=== PATIENT | female | born 1970 | race Caucasian/White ===

== ENCOUNTER → 2023-01-07 | Outpatient (CLI) | payer OTHER ==
[2023-01-07 13:49] VITALS: BP 118/81; PULSE 68; RESP 18; TEMP 97.7
--- NOTE | 2023-01-07 14:32 | P.PAINPG ---
PQRS Measure Charge Sheet Comment: HISTORY OF PRESENT ILLNESS: 52 yr old female as a referral from Dr Shook presents today w severe and chronic neck pain secondary to occipital neuralgia and cervicogenic STEVENSON for evaluation. Pt states pain level is provoked at 8 /10 in intensity, constant, localized in the upper cervical spine, stabbing in character w shooting pain towards the top of head. Pain is provoked by hyperextension. Pain is alleviated by medications ([place], Topamax, Cymbalta), repositioning and rest. PMH: OA, HTN, MDD, Seasonal Allergies PSH: Denies SH: Negative x3 FH: Non contributory All: See list Meds: See list REVIEW OF ORGAN SYSTEMS: CONSTITUTIONAL: No fevers or chills. No recent weight loss. NEUROLOGICAL: + numbness and tingling along the distal extremities. No seizure disorders or headaches. MUSCULOSKELETAL: + pain PSYCHIATRIC: Denies current depression or suicidal thoughts. Physical Examinations : Constitutional : Cooperative , not in acute distress . Neurologic : Cranial nerve II to XII intact. No focal neurological deficits. Psychiatric : alert & oriented x 3. Matching mood & appropriate affect. Judgment & insight intact. Musculoskeletal : Cervical Spine +BL RICH TTP Motor strength in the deltoid and biceps: Normal right side. Normal Left side Motor strength biceps and the wrist extensors: Normal right side . Normal left side Motor strength in the triceps muscle: Normal right side. Normal left side Deep tendon reflexes: Normal at the biceps. Normal at Brachioradialis. Normal at triceps Vertebral body tenderness to deep palpation over Cervical facet loading test: positive bilaterally Spurling test: positive bilaterally Neck distraction test: positive bilaterally Du sign: positive bilaterally Lumbar spine Motor strength lower extremities ,thigh and legs 5/5 Right side , 5/5 Left side Deep tendon reflexes : Normal Knee Jerk. Normal Ankle Jerk Vertebral body tenderness over Benitez Test positive Lumbar facet Loading Test: positive Right / positive Left Range of motion of the lumbar spine Flexion 30 degrees, extension 10 degrees Straight Leg Raise test: Left/ Right positive at degree Paige test: positive right / positive left. Severe tenderness over the Sacroiliac joint on the Right / Left sides Gaenslen test: positive bilaterally Seated flexion test: positive bilaterally. Sacral spine : Severe tenderness over the Sacroiliac joint: right side / left side Range of motion: Flexion of the lumbar spine <60 degrees Range of motion: Extension of the lumbar spine <20 degrees Gaenslen's Test positive [place]'s Test positive Paige test: positive right side / left side Thigh Thrust Test Sacral Thrust Test Imaging: MRI noncontrast of the cervical spine from 12/25/22 reviewed Assessment/ Plan : Cervicogenic STEVENSON and Occipital Neuralgia Recommendation of BL RICH injections. May need a series for optimal pain relief. Risks, benefits of procedure discussed and pt verbalized understanding. Protocol for discontinuation/ continuation of medications osmin procedure discussed. All questions answered. I have spent greater than 30 minutes on patient care today. Dr Delgado was available by phone for the evaluation of this patient. The time was used to review the medical records including relevant urine studies and Prescription history (MAPs), review of the available imaging, evaluation and examination of the patient, coordination of care with the medical staff and if applicable referring physicians, as well as creation of the medical record Controlled Substance Measures - Controlled Substance Measures Is patient prescribed a controlled substance at discharge?: No
== END ==
LOC: PNWHC3 12:09
PROVIDERS: ATTEND Specialist
DX: M54.81 Occipital neuralgia (principal); G44.89 Other headache syndrome; M19.90 Unspecified osteoarthritis, unspecified site; I10 Essential (primary) hypertension; F32.9 Major depressive disorder, single episode, unspecified; J30.2 Other seasonal allergic rhinitis; G89.29 Other chronic pain; Z88.0 Allergy status to penicillin; Z91.018 Allergy to other foods; Z88.1 Allergy status to other antibiotic agents; Z79.899 Other long term (current) drug therapy
CPT/HCPCS: 99211

== ENCOUNTER 2023-01-24 11:52 | Day surgery (SDC) | payer OTHER ==
[~2023-01-24 11:52] MED LIST: LACTATED RINGERS 1,000 ML IV SCH
[2023-01-24] MEDS ORDERED: methylPREDNISolone ACETATE 80 MG/ML 1 ML VIAL ONE (13:01)
[2023-01-24] MEDS ORDERED: ROPIVACAINE 5 MG/ML 20 ML AMPULE ONE (13:01)
[2023-01-24 13:04] VITALS: TEMP 98.2
--- NOTE | 2023-01-24 13:08 | P.PCN ---
Date of Procedure: 01/24/23 Procedure(s) Performed: Preoperative diagnoses= 1- Greater occipital neuralgia. 2-cervicogenic headache Postoperative diagnoses= 1-greater occipital neuralgia. 2-cervicogenic headache Procedure= Bilateral Greater occipital nerve block Anesthesia=none . Estimated blood loss=minimal. Procedure indication= the patient had a history of severe chronic neck pain ,and headache, diagnosed with occipital neuralgia exam was positive for severe tenderness over the occipital nerve bilaterally, she will be a good candidate occipital nerve block, patient failed conservative management Procedure description= the patient was seen and identified in the preoperative holding area, risks and benefits and alternative of the procedure and possible complications discussed with the patient, and he agreed with the preceding, patient signed the consent, and vital signs were monitored and were stable throughout the procedure, patient was placed in the sitting position or table and the neck area was prepped and draped with a sterile fashion, vital signs were closely monitored during the procedure, 25-gauge needle advanced 1 inch lateral to the occipital protuberance on the right side, at the location of the right occipital nerve , then after negative aspiration for heme and CSF and there was no paresthesia during the injection, 6 ml of Robivacaine 0.5% and 40 mg of Depo-Medrol injected after negative aspiration, the needle removed, and the entire same procedure was repeated for the left Greater occipital nerve. Patient tolerated the procedure well without any complication, The patient returned to supine position after the back was cleaned and a Band- Aid applied, the patient transported to recovery room in stable condition and he was monitored for 30 minutes before he was discharged home and then patient was reexamined before going home and patient was discharged in stable condition and patient will follow up with the pain clinic in a few weeks.
[2023-01-24 13:14] VITALS: BP 131/91; PULSE 83; RESP 18
== END 2023-01-24 13:30 | disposition home or self-care (01) ==
LOC: ORPAIN 11:52
PROVIDERS: ATTEND Specialist
DX: M54.81 Occipital neuralgia (principal); G44.86 Cervicogenic headache; Z88.8 Allergy status to other drugs, medicaments and biological substances
CPT/HCPCS: 64405; J1040; J2795

== ENCOUNTER → 2023-03-07 | Outpatient (CLI) | payer OTHER ==
[2023-03-07 11:19] VITALS: BP 134/85; PULSE 104; RESP 15; TEMP 98.2
--- NOTE | 2023-03-07 13:12 | P.PAINPG ---
PQRS Measure Charge Sheet Comment: HISTORY OF PRESENT ILLNESS: 52 yr old female presents today w severe and chronic neck pain secondary to occipital neuralgia and cervicogenic STEVENSON for evaluation s/p BL RICH injection x1. Pt states she experienced 25 % pain relief x 1 wk s/p procedure. Pt states pain level is provoked at 8 /10 in intensity, constant, localized in the upper cervical spine, sharp in character w shooting pain towards the top of head. Pain is provoked by hyperextension. Pain is alleviated by physician guided home exercises and stretches 5 times weekly x 3 mo, medications, repositioning and rest. Oswestry axial pain score of 29. Interventional procedures include BL RICH x1 Medications include [place], Topamax, Cymbalta, Imitrex REVIEW OF ORGAN SYSTEMS: CONSTITUTIONAL: No fevers or chills. No recent weight loss. NEUROLOGICAL: + numbness and tingling along the distal extremities. No seizure disorders or headaches. MUSCULOSKELETAL: + pain PSYCHIATRIC: Denies current depression or suicidal thoughts. Physical Examinations : Constitutional : Cooperative , not in acute distress . Neurologic : Cranial nerve II to XII intact. No focal neurological deficits. Psychiatric : alert & oriented x 3. Matching mood & appropriate affect. Judgment & insight intact. Musculoskeletal : Cervical Spine Motor strength in the deltoid and biceps: Normal right side. Normal Left side Motor strength biceps and the wrist extensors: Normal right side . Normal left side Motor strength in the triceps muscle: Normal right side. Normal left side Deep tendon reflexes: Normal at the biceps. Normal at Brachioradialis. Normal at triceps Vertebral body tenderness to deep palpation over Cervical facet loading test: positive bilaterally over C2-C3, C3-C4 Spurling test: positive bilaterally Neck distraction test: positive bilaterally Du sign: positive bilaterally Lumbar spine Motor strength lower extremities ,thigh and legs 5/5 Right side , 5/5 Left side Deep tendon reflexes : Normal Knee Jerk. Normal Ankle Jerk Vertebral body tenderness over Benitez Test positive Lumbar facet Loading Test: positive Right / positive Left Range of motion of the lumbar spine Flexion 30 degrees, extension 10 degrees Straight Leg Raise test: Left/ Right positive at degree Paige test: positive right / positive left. Severe tenderness over the Sacroiliac joint on the Right / Left sides Gaenslen test: positive bilaterally Seated flexion test: positive bilaterally. Sacral spine : Severe tenderness over the Sacroiliac joint: right side / left side Range of motion: Flexion of the lumbar spine <60 degrees Range of motion: Extension of the lumbar spine <20 degrees Gaenslen's Test positive [place]'s Test positive Paige test: positive right side / left side Thigh Thrust Test Sacral Thrust Test Imaging: MRI noncontrast of the cervical spine from 12/25/22 reviewed Assessment/ Plan : Cervicogenic [place] and Occipital Neuralgia Recommendation of BL facet block of the medial branches C2-C3, C3-C4 #1. May need a series of injections, up until RFA, for optimal pain relief. Risks, benefits of procedure discussed and pt verbalized understanding. Protocol for discontinuation/ continuation of medications osmin procedure discussed. All questions answered. I have spent greater than 30 minutes on patient care today. Dr Delgdao was available by phone for the evaluation of this patient. The time was used to review the medical records including relevant urine studies and Prescription history (MAPs), review of the available imaging, evaluation and examination of the patient, coordination of care with the medical staff and if applicable referring physicians, as well as creation of the medical record PQRS Narrative: Hx Alcohol Use (MH) Yes: OCCASIONAL Home Medications: Ambulatory Orders ALPRAZolam [Xanax] 0.5 mg PO DAILY PRN 01/07/23 DULoxetine HCL [Cymbalta] 60 mg PO BID 01/07/23 Furosemide [Lasix] 40 mg PO DAILY 01/07/23 HYDROcodone/APAP 10-325MG [[place] 10-325] 1 tab PO Q4HR PRN 01/07/23 SUMAtriptan succinate [Imitrex] 100 mg PO DIRECTED PRN 01/07/23 Zolpidem [Ambien] 10 mg PO HS PRN 01/07/23 captopriL [Captopril] 100 mg PO DAILY 01/07/23 Cyclobenzaprine [Flexeril] 10 mg PO BID PRN 01/21/23 Omeprazole 40 mg PO DAILY 01/21/23 Topiramate 100 mg PO BID 01/21/23 Controlled Substance Measures - Controlled Substance Measures Is patient prescribed a controlled substance at discharge?: No
== END ==
LOC: PNWHC3 10:48
PROVIDERS: ATTEND Specialist
DX: G44.86 Cervicogenic headache (principal); M54.81 Occipital neuralgia; Z88.1 Allergy status to other antibiotic agents; Z88.0 Allergy status to penicillin; Z88.8 Allergy status to other drugs, medicaments and biological substances
CPT/HCPCS: 99211

== ENCOUNTER → 2023-03-29 | Day surgery (SDC) | payer OTHER ==
[~2023-03-29] MED LIST changes: +IV FLUID CONTINUATION 1,000 ML IV ONE; +MIDAZOLAM 2 MG/2 ML VIAL ONE; +ROPIVACAINE 5MG/ML 20ML VIAL ONE; +fentaNYL (PF) 50 MCG/ML 2 ML AMP ONE; +methylPREDNISolone ACETATE 40 MG/ML 1 ML VIAL ONE
[2023-03-29 09:28] VITALS: TEMP 97.6
--- NOTE | 2023-03-29 10:08 | P.PCN ---
Date of Procedure: 03/29/23 Procedure(s) Performed: PREOPERATIVE DIAGNOSIS: 1-Cervical Spondylosis with Facet Arthropathy.without myelopathy. 2-cervicogenic headache. 3-occipital neuralgia POSTOPERATIVE DIAGNOSIS:1-cervical spondylosis with facet arthropathy without myelopathy. 2-cervicogenic headache. 3-occipital neuralgia PROCEDURES: Diagnostic bilateral C2 ,C3, C4 medial branch blocks, with fluoroscopic guidance (fluoroscopy images available in radiology department ) ( to target the facet joint at bilateral C2-3 ,C3-4 ) # 1 St ANESTHESIA: Monitored anesthesia care as per anesthesia department . EBL: Minimal PROCEDURE INDICATION: The patient with neck pain secondary to cervical arthropathy unresponsive to more conservative treatments. PROCEDURE DESCRIPTION / TECHNIQUE: The patient was seen and identified in the pr eoperative area. Risks, benefits, complications, and alternatives were discussed with the patient, the patient agreed to proceed with the procedure and signed the consent. IV was started. Vital signs remained stable throughout the procedure. Patient was taken to the OR and time out was completed. The patient was placed in the prone position on the procedure table. A pillow was placed under the pa tients chest to increase the cervical interlaminar space. The cervical area was prepped and draped in the usual sterile fashion. Critical pause was taken. Vital signs were closely monitored during the procedure. Conscious sedation was used during the procedure to decrease patients anxiety. Using cross-table lateral fluoroscopy, the centroid of the trapezoid of right C2 ,C3, C4 was identified, marked, and localized with 1% lidocaine 1 ml at each level for skin and Sub Q infiltrations . Subsequently, a 22 G 3 spinal needle was advanced guided by fluoroscopy to the centroid of the trapezoid of Right C2 ,C3, C4 . [place] tip position was confirmed at the centroid of the trapezoids of Right C2 ,C3 , C4 with anteroposterior fluoroscopy. Subsequently, 1.5 ml of preservative-free Ropivacaine 0.5% mixed with Depo- Medrol 20 mg and half ml of the mixture was injected after negative aspiration for blood and CSF. [place] was then removed intact the same procedure was repea von at the left C2 , C3 , C4 levels. COMPLICATIONS: No acute complications. DISPOSITION / PLANS: The patient was placed in a supine position and transferred to the recovery area in a stable condition for observation and was discharged from the recovery room after meeting discharge criteria. Home discharge instructions given to the patient by the staff. The patient was reexamined prior to discharge. The patient will schedule a follow up in the clinic in 2-4 weeks.
--- NOTE | 2023-03-29 10:22 | FL ---
Fluoroscopy History: PAIN 13 SEC FL TIME. .12537 DAP. -AB/CE
[2023-03-29 15:26] VITALS: BP 121/73; PULSE 71; RESP 16
== END ==
LOC: ORPAIN 09:00
PROVIDERS: ATTEND Specialist
DX: M47.812 Spondylosis without myelopathy or radiculopathy, cervical region (principal); G44.86 Cervicogenic headache; M54.81 Occipital neuralgia; I10 Essential (primary) hypertension; G43.909 Migraine, unspecified, not intractable, without status migrainosus; K21.9 Gastro-esophageal reflux disease without esophagitis; Z88.1 Allergy status to other antibiotic agents; Z88.0 Allergy status to penicillin; Z79.899 Other long term (current) drug therapy; Z79.891 Long term (current) use of opiate analgesic
CPT/HCPCS: 64490; 64491 ×2; J2250; J1030; J3010; J2795

== ENCOUNTER → 2023-04-22 | Outpatient (CLI) | payer OTHER ==
[2023-04-22 12:20] VITALS: BP 138/84; PULSE 75; RESP 15; TEMP 98.2
--- NOTE | 2023-04-22 14:39 | P.PAINPG ---
PQRS Measure Charge Sheet Comment: HISTORY OF PRESENT ILLNESS: 52 yr old female presents today w severe and chronic neck pain secondary to occipital neuralgia and cervicogenic STEVENSON for evaluation s/p C2-C3, C3-C4 #1. Pt states she experienced 80 % pain relief x 3 days s/p procedure. Pt states pain level is provoked at 8 /10 in intensity, constant, localized in the upper cervical spine, sharp in character w shooting pain towards the top of head. Pain is provoked by hyperextension. Pain is alleviated by physician guided home exercises and stretches 5 times weekly x 3 mo, medications, repositioning and rest. Oswestry axial pain score of 29. Interventional procedures include BL RICH x1, BL MBB C2-C4 x1 Medications include [place], Topamax, Cymbalta, Imitrex REVIEW OF ORGAN SYSTEMS: CONSTITUTIONAL: No fevers or chills. No recent weight loss. NEUROLOGICAL: + numbness and tingling along the distal extremities. No seizure disorders or headaches. MUSCULOSKELETAL: + pain PSYCHIATRIC: Denies current depression or suicidal thoughts. Physical Examinations : Constitutional : Cooperative , not in acute distress . Neurologic : Cranial nerve II to XII intact. No focal neurological deficits. Psychiatric : alert & oriented x 3. Matching mood & appropriate affect. Judgment & insight intact. Musculoskeletal : Cervical Spine Motor strength in the deltoid and biceps: Normal right side. Normal Left side Motor strength biceps and the wrist extensors: Normal right side . Normal left side Motor strength in the triceps muscle: Normal right side. Normal left side Deep tendon reflexes: Normal at the biceps. Normal at Brachioradialis. Normal at triceps Vertebral body tenderness to deep palpation over Cervical facet loading test: positive bilaterally over C2-C3, C3-C4 Spurling test: positive bilaterally Neck distraction test: positive bilaterally Du sign: positive bilaterally Lumbar spine Motor strength lower extremities ,thigh and legs 5/5 Right side , 5/5 Left side Deep tendon reflexes : Normal Knee Jerk. Normal Ankle Jerk Vertebral body tenderness over Benitez Test positive Lumbar facet Loading Test: positive R ight / positive Left Range of motion of the lumbar spine Flexion 30 degrees, extension 10 degrees Straight Leg Raise test: Left/ Right positive at degree Paige test: positive right / positive left. Severe tenderness over the Sacroiliac joint on the Right / Left sides Gaenslen test: positive bilaterally Seated flexion test: positive bilaterally. Sacral spine : Severe tenderness over the Sacroiliac joint: right side / left side Range of motion: Flexion of the lumbar spine <60 degrees Range of motion: Extension of the lumbar spine <20 degrees Gaenslen's Test positive [place]'s Test positive Paige test: positive right side / left side Thigh Thrust Test Sacral Thrust Test Imaging: MRI noncontrast of the cervical spine from 12/25/22 reviewed Assessment/ Plan : Cervicogenic STEVENSON and Occipital Neuralgia Recommendation of BL facet block of the medial branches C2-C3, C3-C4 #2. May need a series of injections, up until RFA, for optimal pain relief. Risks, benefits of procedure discussed and pt verbalized understanding. Protocol for discontinuation/ continuation of medications osmin procedure discussed. All questions answered. I have spent greater than 30 minutes on patient care today. Dr Delgado was available by phone for the evaluation of this patient. The time was used to review the medical records including relevant urine studies and Prescription history (MAPs), review of the available imaging, evaluation and examination of the patient, coordination of care with the medical staff and if applicable referring physicians, as well as creation of the medical record PQRS Narrative: Hx Alcohol Use (MH) Yes: OCCASIONAL Home Medications: Ambulatory Orders ALPRAZolam [Xanax] 0.5 mg PO DAILY PRN 01/07/23 DULoxetine HCL [Cymbalta] 60 mg PO BID 01/07/23 Furosemide [Lasix] 40 mg PO DAILY 01/07/23 HYDROcodone/APAP 10-325MG [[place] 10-325] 1 tab PO Q4HR PRN 01/07/23 SUMAtriptan succinate [Imitrex] 100 mg PO DIRECTED PRN 01/07/23 Zolpidem [Ambien] 10 mg PO HS PRN 01/07/23 captopriL [Captopril] 100 mg PO DAILY 01/07/23 Cyclobenzaprine [Flexeril] 10 mg PO BID PRN 01/21/23 Omeprazole 40 mg PO DAILY 01/21/23 Topiramate 100 mg PO BID 01/21/23 Controlled Substance Measures - Controlled Substance Measures Is patient prescribed a controlled substance at discharge?: No
== END ==
LOC: PNWHC3 10:36
PROVIDERS: ATTEND Specialist
DX: G44.86 Cervicogenic headache (principal); M54.81 Occipital neuralgia; M47.812 Spondylosis without myelopathy or radiculopathy, cervical region; Z88.1 Allergy status to other antibiotic agents; Z88.0 Allergy status to penicillin; Z88.6 Allergy status to analgesic agent
CPT/HCPCS: 99211

== ENCOUNTER 2023-05-10 10:03 | Day surgery (SDC) | payer OTHER ==
[2023-05-10] MEDS: LACTATED RINGERS 1,000 ML IV SCH ×2 (10:25→10:42)
[2023-05-10] MEDS ORDERED: fentaNYL (PF) 50 MCG/ML 2 ML AMP ONE (10:44)
[2023-05-10] MEDS ORDERED: MIDAZOLAM 2 MG/2 ML VIAL ONE (10:44)
[2023-05-10] MEDS ORDERED: methylPREDNISolone ACETATE 40 MG/ML 1 ML VIAL ONE (10:51)
[2023-05-10] MEDS ORDERED: ROPIVACAINE 5MG/ML 20ML VIAL ONE (10:51)
--- NOTE | 2023-05-10 11:07 | P.PCN ---
Date of Procedure: 05/10/23 Procedure(s) Performed: PREOPERATIVE DIAGNOSIS: 1-Cervical Spondylosis with Facet Arthropathy.without myelopathy. 2-cervicogenic headache. 3-occipital neuralgia POSTOPERATIVE DIAGNOSIS:1-cervical spondylosis with facet arthropathy without myelopathy. 2-cervicogenic headache. 3-occipital neuralgia PROCEDURES: Diagnostic bilateral C2 ,C3, C4 medial branch blocks, with fluoroscopic guidance (fluoroscopy images available in radiology department ) ( to target the facet joint at bilateral C2-3 ,C3-4 ) # 2nd ANESTHESIA: Monitored anesthesia care as per anesthesia department . EBL: Minimal PROCEDURE INDICATION: The patient with neck pain secondary to cervical arthropathy unresponsive to more conservative treatments. PROCEDURE DESCRIPTION / TECHNIQUE: The patient was seen and identified in the pr eoperative area. Risks, benefits, complications, and alternatives were discussed with the patient, the patient agreed to proceed with the procedure and signed the consent. IV was started. Vital signs remained stable throughout the procedure. Patient was taken to the OR and time out was completed. The patient was placed in the prone position on the procedure table. A pillow was placed under the pa tients chest to increase the cervical interlaminar space. The cervical area was prepped and draped in the usual sterile fashion. Critical pause was taken. Vital signs were closely monitored during the procedure. Conscious sedation was used during the procedure to decrease patients anxiety. Using cross-table lateral fluoroscopy, the centroid of the trapezoid of right C2 ,C3, C4 was identified, marked, and localized with 1% lidocaine 1 ml at each level for skin and Sub Q infiltrations . Subsequently, a 22 G 3 spinal needle was advanced guided by fluoroscopy to the centroid of the trapezoid of Right C2 ,C3, C4 . [place] tip position was confirmed at the centroid of the trapezoids of Right C2 ,C3 , C4 with anteroposterior fluoroscopy. Subsequently, 1.5 ml of preservative-free Ropivacaine 0.5% mixed with Depo- Medrol 20 mg and half ml of the mixture was injected after negative aspiration for blood and CSF. [place] was then removed intact the same procedure was repea von at the left C2 , C3 , C4 levels. COMPLICATIONS: No acute complications. DISPOSITION / PLANS: The patient was placed in a supine position and transferred to the recovery area in a stable condition for observation and was discharged from the recovery room after meeting discharge criteria. Home discharge instructions given to the patient by the staff. The patient was reexamined prior to discharge. The patient will schedule a follow up in the clinic in 2-4 weeks.
[2023-05-10] MEDS ORDERED: LACTATED RINGERS 1,000 ML IV ONE (11:09)
--- NOTE | 2023-05-10 11:26 | FL ---
Intraoperative/procedural fluoroscopic services were provided for cervical facet block. Total fluoros copy time is 8.0 seconds with a total of 5 submitted images to PACS. Total DAP [id number] mGym2. Please see the operative note for further details.
[2023-05-10 11:32] VITALS: BP 115/81; PULSE 63; RESP 16
== END 2023-05-10 12:08 | disposition home or self-care (01) ==
LOC: ORPAIN 10:03
PROVIDERS: ATTEND Specialist
DX: M47.812 Spondylosis without myelopathy or radiculopathy, cervical region (principal); G44.86 Cervicogenic headache; M54.81 Occipital neuralgia; I10 Essential (primary) hypertension; E78.5 Hyperlipidemia, unspecified; G43.909 Migraine, unspecified, not intractable, without status migrainosus; F41.9 Anxiety disorder, unspecified; Z88.0 Allergy status to penicillin
CPT/HCPCS: 64491 ×2; 99152; 81025; 64490; J2250; J1030; J3010; J2795

== ENCOUNTER → 2023-06-20 | Outpatient (CLI) | payer OTHER ==
[2023-06-20 12:14] VITALS: BP 130/84; PULSE 85; RESP 16; TEMP 97.2
--- NOTE | 2023-06-20 15:33 | P.PAINPG ---
PQRS Measure Charge Sheet Comment: HISTORY OF PRESENT ILLNESS: 52 yr old female presents today w severe and chronic neck pain secondary to occipital neuralgia and cervicogenic STEVNESON for evaluation s/p C2-C3, C3-C4 #2. Pt states she experienced 80% pain relief x 7 days s/p procedure. Pt states pain level is provoked at 8 /10 in intensity, constant, localized in the upper cervical spine, predominantly axial, sharp in character w occasional shooting pain towards the top of head. Pain is provoked by hyperextension. Pain is alleviated by physician guided home exercises and stretches 5 times weekly x 3 mo, medications, repositioning and rest. Cervical disability pain score of 29. Interventional procedures include BL RICH x1, BL MBB C2-C4 x2 Medications include [place], Topamax, Cymbalta, Imitrex REVIEW OF ORGAN SYSTEMS: CONSTITUTIONAL: No fevers or chills. No recent weight loss. NEUROLOGICAL: + numbness and tingling along the distal extremities. No seizure disorders or headaches. MUSCULOSKELETAL: + pain PSYCHIATRIC: Denies current depression or suicidal thoughts. Physical Examinations : Constitutional : Cooperative , not in acute distress . Neurologic : Cranial nerve II to XII intact. No focal neurological deficits. Psychiatric : alert & oriented x 3. Matching mood & appropriate affect. Judgment & insight intact. Musculoskeletal : Cervical Spine Motor strength in the deltoid and biceps: Normal right side. Normal Left side Motor strength biceps and the wrist extensors: Normal right side . Normal left side Motor strength in the triceps muscle: Normal right side. Normal left side Deep tendon reflexes: Normal at the biceps. Normal at Brachioradialis. Normal at triceps Vertebral body tenderness to deep palpation over Cervical facet loading test: positive bilaterally over C2-C3, C3-C4 Spurling test: positive bilaterally Neck distraction test: positive bilaterally Du sign: positive bilaterally Lumbar spine Motor strength lower extremities ,thigh and legs 5/5 Right side , 5/5 Left side Deep tendon reflexes : Normal Knee Jerk. Normal Ankle Jerk Vertebral body tenderness over Benitez Test positive Lumbar facet Loading Test: positive Right / positive Left Range of motion of the lumbar spine Flexion 30 degrees, extension 10 degrees Straight Leg Raise test: Left/ Right positive at degree Paige test: positive right / positive left. Severe tenderness over the Sacroiliac joint on the Right / Left sides Gaenslen test: positive bilaterally Seated flexion test: positive bilaterally. Sacral spine : Severe tenderness over the Sacroiliac joint: right side / left side Range of motion: Flexion of the lumbar spine <60 degrees Range of motion: Extension of the lumbar spine <20 degrees Gaenslen's Test positive Modesto's Test positive Paige test: positive right side / left side Thigh Thrust Test Sacral Thrust Test Imaging: MRI noncontrast of the cervical spine from 12/25/22 reviewed Assessment/ Plan : Cervicogenic STEVENSON and Occipital Neuralgia Recommendation of BL RFA C2-C3, C3-C4. Exhibited optimal pain relief w prior BL MBBs of the C2-C4. Risks, benefits of procedure discussed and pt verbalized understanding. Protocol for discontinuation/ continuation of medications osmin procedure discussed. All questions answered. I have spent greater than 30 minutes on patient care today. Dr Delgado was available by phone for the evaluation of this patient. The time was used to review the medical records including relevant urine studies and Prescription history (MAPs), review of the available imaging, evaluation and examination of the patient, coordination of care with the medical staff and if applicable referring physicians, as well as creation of the medical record PQRS Narrative: Hx Alcohol Use (MH) Yes: OCCASIONAL Home Medications: Ambulatory Orders ALPRAZolam [Xanax] 0.5 mg PO DAILY PRN 01/07/23 DULoxetine HCL [Cymbalta] 60 mg PO BID 01/07/23 Furosemide [Lasix] 40 mg PO DAILY PRN 01/07/23 HYDROcodone/APAP 10-325MG [[place] 10-325] 1 tab PO Q4HR PRN 01/07/23 SUMAtriptan succinate [Imitrex] 100 mg PO DIRECTED PRN 01/07/23 Zolpidem [Ambien] 10 mg PO HS PRN 01/07/23 captopriL [Captopril] 100 mg PO DAILY 01/07/23 Cyclobenzaprine [Flexeril] 10 mg PO BID PRN 01/21/23 Omeprazole 40 mg PO DAILY 01/21/23 Topiramate 100 mg PO BID 01/21/23 Controlled Substance Measures - Controlled Substance Measures Is patient prescribed a controlled substance at discharge?: No
== END ==
LOC: PNWHC3 09:17
PROVIDERS: ATTEND Specialist
DX: G44.86 Cervicogenic headache (principal); M54.81 Occipital neuralgia; Z88.0 Allergy status to penicillin; Z88.6 Allergy status to analgesic agent; Z88.1 Allergy status to other antibiotic agents
CPT/HCPCS: 99211

== ENCOUNTER 2023-07-04 12:04 | Day surgery (SDC) | payer OTHER ==
[2023-07-02 14:03] VITALS: BMI 28.3
[~2023-07-04 12:04] MED LIST changes: -IV FLUID CONTINUATION 1,000 ML IV ONE; -MIDAZOLAM 2 MG/2 ML VIAL ONE; -ROPIVACAINE 5MG/ML 20ML VIAL ONE; -fentaNYL (PF) 50 MCG/ML 2 ML AMP ONE; -methylPREDNISolone ACETATE 40 MG/ML 1 ML VIAL ONE
[2023-07-04 14:17] VITALS: TEMP 97
[2023-07-04] MEDS ORDERED: MIDAZOLAM 2 MG/2 ML VIAL ONE (14:54)
[2023-07-04] MEDS ORDERED: ROPIVACAINE 5MG/ML 20ML VIAL ONE (14:54)
[2023-07-04] MEDS ORDERED: IV FLUID CONTINUATION 600 ML IV ONE (15:25)
--- NOTE | 2023-07-04 15:41 | P.PCN ---
Description of Procedure: Preprocedure diagnosis. Cervical facet joint arthropathy, cervical spine spondylosis, cervical degenerative disc disease. Postprocedure diagnosis. As above. Procedure done. Bilateral C2-3,C3-4 facet joint (C2,C3,C4 medial branch of dorsal ramus) diagnostic injection with local anesthetics under fluoroscopic guidance. Anesthesia. As per anesthesia department. IV sedation of Versed 1 milligram, give in OR. Continuous pulse ox, EKG, blood pressure and verbal communication was maintained with the patient in OR. Blood loss. None. Indication. Patient has got the diagnoses of cervical spondylolysis, facet joint arthropathy with neck pain. Discussed with the patient procedure, alternatives, complications including infection, bleeding, nerve damage, paralysis all of which could be permanent. Patient understands and all questions are answered. Procedure note. After getting consent patient in OR in prone position. Back of the neck was prepped with chlorhexidine and draped in sterile fashion. After injecting 3 mL of plain 1% lidocaine subcutaneously, a 22-gauge spinal needle was introduced under tunnel vision of the fluoroscope AP view at the waist of the articular pillar (lateral mass) at C4 vertebral level. In the lateral view of the fluoroscope it was confirmed that the tip of the needle stayed within the dorsal half of the articular pillar (lateral mass). So, right C3-4facet joint was targeted by blocking right C4 and K0lcniby branch, right C2-3 facet joint was targeted by blocking right C2 and C3 medial branch. In exactly the same way , after subcutaneous injection of lidocaine, 22-gauge spinal needles were introduced under tunnel vision of the fluoroscope AP view at the waist of the ar ticular pillars (lateral mass) at C5 and C6 vertebral level. In the lateral view of the fluoroscope it was confirmed that the tip of the needle stayed within the dorsal half of the articular pillar (lateral mass). At each needle, 0.5 mL of 0.5% ropivacaine preservative-free was injected. In exactly same way left C2-3, C3-4 facet joints were targeted by blocking left C2,C3,L1dusqmr branch of dorsal ramus. After the procedure needle was taken out and bandage was applied. Disposition. Patient tolerated the procedure well. No complication. Discharged home in stable condition.
[2023-07-04 15:56] VITALS: BP 112/78; RESP 20
[2023-07-04 15:57] VITALS: PULSE 72
--- NOTE | 2023-07-04 16:31 | FL ---
EXAMINATION TYPE: FL guided pain mgmt statistic Intraoperative/procedural fluoroscopic services were provided. Total fluoroscopy time is 17 seconds with a total of 2 submitted images to PACS. Please see the operative/procedural note for further details. DAP: 0.21128 Gycm2
== END 2023-07-04 16:15 | disposition home or self-care (01) ==
LOC: ORPAIN 12:04
PROVIDERS: ATTEND Pain Medicine Interventional Pain Medicine
DX: M50.30 Other cervical disc degeneration, unspecified cervical region (principal); M47.812 Spondylosis without myelopathy or radiculopathy, cervical region; Z88.0 Allergy status to penicillin
CPT/HCPCS: 64491 ×2; 99152; 99153; 81025; 64490; J2250; J2795

== ENCOUNTER → 2023-09-11 | Outpatient (CLI) | payer OTHER ==
[2023-09-11 13:46] VITALS: BP 142/72; PULSE 100; RESP 15; TEMP 98.6
--- NOTE | 2023-09-11 14:30 | P.PAINPG ---
PQRS Measure Charge Sheet Comment: HISTORY OF PRESENT ILLNESS: A 52 yr old female presents today w severe and chronic neck pain secondary to occipital neuralgia and cervicogenic STEVENSON for evaluation s/p BL RFA C2-C3, C3-C4. Pt states she experienced 90 % pain relief s/p procedure. Pt states pain level is provoked at 6 /10 in intensity, constant, localized in the mid cervical spine, predominantly axial, achy in character without shooting pain. Pain is provoked by hyperextension. Pain is alleviated by injections, physician guided home exercises and stretches 5 times weekly x 3 mo, medications, repositioning and rest. Cervical disability pain score of 29. Interventional procedures include BL RICH x1, BL RFA C2-C4 (Jun 2023) Medications include [place], Topamax, Cymbalta, Imitrex REVIEW OF ORGAN SYSTEMS: CONSTITUTIONAL: No fevers or chills. No recent weight loss. NEUROLOGICAL: + numbness and tingling along the distal extremities. No seizure disorders or headaches. MUSCULOSKELETAL: + pain PSYCHIATRIC: Denies current depression or suicidal thoughts. Physical Examinations : Constitutional : Cooperative , not in acute distress . Neurologic : Cranial nerve II to XII intact. No focal neurological deficits. Psychiatric : alert & oriented x 3. Matching mood & appropriate affect. Judgment & insight intact. Musculoskeletal : Cervical Spine Motor strength in the deltoid and biceps: Normal right side. Normal Left side Motor strength biceps and the wrist extensors: Normal right side . Normal left side Motor strength in the triceps muscle: Normal right side. Normal left side Deep tendon reflexes: Normal at the biceps. Normal at Brachioradialis. Normal at triceps Vertebral body tenderness to deep palpation over Cervical facet loading test: positive bilaterally Taut bands w twitch response over BL C2-T1 Spurling test: positive bilaterally Neck distraction test: positive bilaterally Du sign: positive bilaterally Lumbar spine Motor strength lower extremities ,thigh and legs 5/5 Right side , 5/5 Left side Deep tendon reflexes : Normal Knee Jerk. Normal Ankle Jerk Vertebral body tenderness over Benitez Test positive Lumbar facet Loading Test: positive Right / positive Left Range of motion of the lumbar spine Flexion 30 degrees, extension 10 degrees Straight Leg Raise test: Left/ Right positive at degree Paige test: positive right / positive left. Severe tenderness over the Sacroiliac joint on the Right / Left sides Gaenslen test: positive bilaterally Seated flexion test: positive bilaterally. Sacral spine : Severe tenderness over the Sacroiliac joint: right side / left side Range of motion: Flexion of the lumbar spine <60 degrees Range of motion: Extension of the lumbar spine <20 degrees Gaenslen's Test positive Modesto's Test positive Paige test: positive right side / left side Thigh Thrust Test Sacral Thrust Test Imaging: MRI noncontrast of the cervical spine from 12/25/22 reviewed Assessment/ Plan : Cervicogenic STEVENSON and Occipital Neuralgia Recommendation of BL TPIs C2- T1 #1. May need a series of injections for optimal pain relief. Risks, benefits of procedure discussed and pt verbalized understanding. All questions answered. I have spent greater than 30 minutes on patient care today. Dr Delgado was a vailable by phone for the evaluation of this patient. The time was used to review the medical records including relevant urine studies and Prescription history (MAPs), review of the available imaging, evaluation and examination of the patient, coordination of care with the medical staff and if applicable referring physicians, as well as creation of the medical record PQRS Narrative: Hx Alcohol Use (MH) Yes: OCCASIONAL Home Medications: Ambulatory Orders ALPRAZolam [Xanax] 0.5 mg PO DAILY PRN 01/07/23 DULoxetine HCL [Cymbalta] 60 mg PO DAILY 01/07/23 Furosemide [Lasix] 40 mg PO DAILY PRN 01/07/23 HYDROcodone/APAP 10-325MG [[place] 10-325] 1 tab PO Q4HR PRN 01/07/23 SUMAtriptan succinate [Imitrex] 100 mg PO DIRECTED PRN 01/07/23 Zolpidem [Ambien] 10 mg PO HS PRN 01/07/23 captopriL [Captopril] 100 mg PO DAILY 01/07/23 Omeprazole 40 mg PO DAILY 01/21/23 Topiramate 100 mg PO DAILY 01/21/23 Controlled Substance Measures - Controlled Substance Measures Is patient prescribed a controlled substance at discharge?: No
== END ==
LOC: PNWHC3 11:26
PROVIDERS: ATTEND Specialist
DX: G44.86 Cervicogenic headache (principal); M54.81 Occipital neuralgia; Z91.018 Allergy to other foods; Z88.1 Allergy status to other antibiotic agents; Z88.6 Allergy status to analgesic agent; Z88.0 Allergy status to penicillin
CPT/HCPCS: 99211

== ENCOUNTER 2023-10-03 09:57 | Day surgery (SDC) | payer OTHER ==
[2023-10-02 09:00] VITALS: BMI 28.9
[2023-10-03] MEDS ORDERED: LACTATED RINGERS 1,000 ML IV SCH (10:06)
[2023-10-03 10:21] VITALS: RESP 16; TEMP 97.1
[2023-10-03] MEDS ORDERED: ROPIVACAINE 5MG/ML 20ML VIAL ONE (11:47)
[2023-10-03] MEDS ORDERED: methylPREDNISolone ACETATE 40 MG/ML 1 ML VIAL ONE (11:47)
--- NOTE | 2023-10-03 12:20 | P.PCN ---
Description of Procedure: Preprocedure diagnosis. Myofascial pain. Myofascial trigger point. Postprocedure diagnosis. As above. Procedure done. Myofascial trigger point injection with local anesthetics and steroid at 6 points. Anesthesia. Local anesthetic infiltration. In the OR continuous pulse ox, EKG, blood pressure, and verbal communication was maintained with the patient. Blood loss. None. Indication. Discussed with the patient procedure, alternatives and possible complications which may include infection, bleeding, nerve damage, aggravation of pain. Patient understands and all questions were answered. Procedure note. After getting consent patient in the procedure area. Most tender points were identified and marked. A 25-gauge needle attached to syringe was introduced at the trigger points and after negative aspiration 3.5 mL solution are injected at each trigger point. I injected 4 trigger points in bilateral cervical paraspinal muscles, 2 trigger points in bilateral trapezius muscle. Total solution consists of 20 ml 0.5%Ropivacaine mixed with 80 mg Depomedrol. Disposition. Patient tolerated the procedure well. No complication. Discharged home in stable condition.
[2023-10-03 12:43] VITALS: BP 109/70; PULSE 65
== END 2023-10-03 12:25 | disposition home or self-care (01) ==
LOC: ORPAIN 09:57
PROVIDERS: ATTEND Pain Medicine Interventional Pain Medicine
DX: M79.18 Myalgia, other site (principal); Z88.0 Allergy status to penicillin
CPT/HCPCS: 20553; J1030; J2795

== ENCOUNTER → 2023-10-17 | Outpatient (CLI) | payer OTHER ==
[2023-10-17 11:40] VITALS: BP 130/82; PULSE 80; RESP 16; TEMP 97.9
--- NOTE | 2023-10-17 14:01 | P.PAINPG ---
PQRS Measure Charge Sheet Comment: HISTORY OF PRESENT ILLNESS: A 52 yr old female presents today w severe and chronic neck pain secondary to occipital neuralgia and cervicogenic STEVENSON for evaluation s/p BL TPIs C2- T1 #1. Pt states she experienced 80 % pain relief x 2 wks s/p procedure. Pt states pain level is provoked at 6 /10 in intensity, constant, localized in the mid cervical spine, predominantly axial, achy in character without shooting pain. Pain is provoked by hyperextension. Pain is alleviated by injections, physician guided home exercises and stretches 5 times weekly x 3 mo, medications, repositioning and rest. Cervical disability pain score of 28. Interventional procedures include BL RICH x1, BL RFA C2-C4 (Jun 2023), BL TPIs C2- T1 x1 Medications include [place], Topamax, Cymbalta, Imitrex REVIEW OF ORGAN SYSTEMS: CONSTITUTIONAL: No fevers or chills. No recent weight loss. NEUROLOGICAL: + numbness and tingling along the distal extremities. No seizure disorders or headaches. MUSCULOSKELETAL: + pain PSYCHIATRIC: Denies current depression or suicidal thoughts. Physical Examinations : Constitutional : Cooperative , not in acute distress . Neurologic : Cranial nerve II to XII intact. No focal neurological deficits. Psychiatric : alert & oriented x 3. Matching mood & appropriate affect. Judgment & insight intact. Musculoskeletal : Cervical Spine Motor strength in the deltoid and biceps: Normal right side. Normal Left side Motor strength biceps and the wrist extensors: Normal right side . Normal left side Motor strength in the triceps muscle: Normal right side. Normal left side Deep tendon reflexes: Normal at the biceps. Normal at Brachioradialis. Normal at triceps Vertebral body tenderness to deep palpation over C6 Cervical facet loading test: positive bilaterally Taut bands w twitch response Spurling test: positive bilaterally C6- C7 L > R Neck distraction test: positive bilaterally Du sign: positive bilaterally Lumbar spine Motor strength lower extremities ,thigh and legs 5/5 Right side , 5/5 Left side Deep tendon reflexes : Normal Knee Jerk. Normal Ankle Jerk Vertebral body tenderness over Benitez Test positive Lumbar facet Loading Test: positive Right / positive Left Range of motion of the lumbar spine Flexion 30 degrees, extension 10 degrees Straight Leg Raise test: Left/ Right positive at degree Paige test: positive right / positive left. Severe tenderness over the Sacroiliac joint on the Right / Left sides Gaenslen test: positive bilaterally Seated flexion test: positive bilaterally. Sacral spine : Severe tenderness over the Sacroiliac joint: right side / left side Range of motion: Flexion of the lumbar spine <60 degrees Range of motion: Extension of the lumbar spine <20 degrees Gaenslen's Test positive Modesto's Test positive Paige test: positive right side / left side Thigh Thrust Test Sacral Thrust Test Imaging: MRI noncontrast of the cervical spine from 12/25/22 reviewed Assessment/ Plan : Cervicogenic STEVENSON and Occipital Neuralgia Recommendation of JAYDE C6-C7 #1. May need a series of injections for optimal pain relief. Risks, benefits of procedure discussed and pt verbalized understanding. All questions answered. I have spent greater than 30 minutes on patient care today. Dr Delgado was available by phone for the evaluation of this patient. The time was used to review the medical records including relevant urine studies and Prescription his tory (MAPs), review of the available imaging, evaluation and examination of the patient, coordination of care with the medical staff and if applicable referring physicians, as well as creation of the medical record PQRS Narrative: Hx Alcohol Use (MH) Yes: OCCASIONAL Home Medications: Ambulatory Orders ALPRAZolam [Xanax] 0.5 mg PO DAILY PRN 01/07/23 DULoxetine HCL [Cymbalta] 60 mg PO DAILY 01/07/23 Furosemide [Lasix] 40 mg PO DAILY PRN 01/07/23 HYDROcodone/APAP 10-325MG [[place] 10-325] 1 tab PO Q4HR PRN 01/07/23 SUMAtriptan succinate [Imitrex] 100 mg PO DIRECTED PRN 01/07/23 Zolpidem [Ambien] 10 mg PO HS PRN 01/07/23 captopriL [Captopril] 100 mg PO DAILY 01/07/23 Omeprazole 40 mg PO DAILY 01/21/23 Topiramate 100 mg PO DAILY 01/21/23 Atorvastatin [Lipitor] 20 mg PO DAILY 10/02/23 Controlled Substance Measures - Controlled Substance Measures Is patient prescribed a controlled substance at discharge?: No
== END ==
LOC: PNWHC3 10:28
PROVIDERS: ATTEND Specialist
DX: G44.86 Cervicogenic headache (principal); M54.81 Occipital neuralgia; Z88.0 Allergy status to penicillin; Z88.6 Allergy status to analgesic agent; Z88.1 Allergy status to other antibiotic agents; Z91.018 Allergy to other foods; G89.29 Other chronic pain
CPT/HCPCS: 99211

== ENCOUNTER 2023-11-21 10:26 | Day surgery (SDC) | payer OTHER ==
[2023-11-18 16:08] VITALS: BMI 29.2
[2023-11-21 11:26] VITALS: TEMP 97.2
[2023-11-21] MEDS ORDERED: LACTATED RINGERS 1,000 ML IV SCH (11:45)
[2023-11-21] MEDS ORDERED: IOPAMIDOL M200 10 ML VIAL ONE (11:50)
[2023-11-21] MEDS ORDERED: DEXAMETHASONE SOD PHOSPHATE 10 MG/ML 1 ML VIAL ONE (11:50)
--- NOTE | 2023-11-21 12:00 | P.PCN ---
Date of Procedure: 11/21/23 Description of Procedure: . PROCEDURE 1. Cervical epidural steroid injection under fluoroscopic guidance, C7-T1 2. Cervical epidurogram. PREOPERATIVE DIAGNOSIS: 1- Cervical Degenerative Disc Diseases 2- Cervical radiculopathy., 3-cervical spondylosis with cervical Facet arthropathy without myelopathy POSTOPERATIVE DIAGNOSIS: : 1- Cervical Degenerative Disc Diseases , 2- Cervical radiculopathy. 3-,cervical spondylosis with cervical Facet arthropathy without myelopathy ANESTHESIA: Local anesthesia with 1% lidocaine EBL 0 Fluoroscopy image save and stored PROCEDURE INDICATION: The patient with neck pain and radiculitis unresponsive to conservative treatment consents for procedure. patient also has complaints of greater occipital neuralgia and has had previous medial branch blocks which provided her with relief. This is her first cervical epidural steroid injection. PROCEDURE DESCRIPTION / TECHNIQUE: The patient was seen and identified in the preoperative area. Risks, benefits, complications, including but not limited to infections ,bleeding , allergic reactions to the medications ,and not complete pain relief, and alternatives were discussed with the patient, the patient agreed to proceed with the procedure and signed the consent. Patient was taken to the OR and time out was completed. The patient was placed in the prone position on the procedure table. A pillow was placed under the patients chest to increase the cervical interlaminar space. The cervical area was prepped and draped in the usual sterile fashion. Vital signs were closely monitored during the procedure. Using anterior-posterior fluoroscopy, the C7-T1 interlaminar space was identified and the skin over this site was marked and then infiltrated with 1% lidocaine subcutaneously. Subsequently, a 20-gauge 3-1/2-inch Tuohy epidural needle was inserted and advanced toward the epidural space by means of the "[id number]" with saline technique and guided by AP, contralateral oblique, and lateral fluoroscopy. The correct needle position in the epidural space was verified with the injection of 2 mL of the water soluble contrast dye [id number] and observing an excellent epidurogram with the epidural spread of the dye, after negative aspiration for blood and CSF and in the absence of paresthesias. Again after negative aspiration, mixture containing 10 mg Dexamethasone and 2 ml of preservative-free normal saline injected and a washout of epidurogram was seen. Needle was withdrawn intact, skin was cleansed, and bandages were applied. Complications= none. Disposition= patient was placed in supine position and transferred to the recovery room area in stable condition and there was no evidence of upper or lower extremity motor or sensory deficit after the procedure patient was discharged from recovery room after discharge criteria met and home discharge instructions was given by the staff and patient will follow with the pain clinic in 2-4 weeks
[2023-11-21 12:11] VITALS: RESP 18
--- NOTE | 2023-11-21 12:39 | FL ---
EXAMINATION TYPE: FL guided pain mgmt statistic DATE OF EXAM: 11/21/2023 FLUOROSCOPY Fluoroscopy time of 9.4 seconds was used during cervical epidural steroid injection. 4 image/s docum ent/s the procedure. DAP 0.95124 mGycm2.
[2023-11-21 12:54] VITALS: BP 142/69; PULSE 69
== END 2023-11-21 12:31 | disposition home or self-care (01) ==
LOC: ORPAIN 10:26
PROVIDERS: ATTEND Anesthesiology
DX: M50.13 Cervical disc disorder with radiculopathy, cervicothoracic region (principal); M47.22 Other spondylosis with radiculopathy, cervical region; Z88.0 Allergy status to penicillin; Z88.6 Allergy status to analgesic agent; Z79.899 Other long term (current) drug therapy
CPT/HCPCS: 81025; 62321; J1100; Q9966

== ENCOUNTER → 2023-12-16 | Outpatient (CLI) | payer OTHER ==
[2023-12-16 13:28] VITALS: BP 141/99; PULSE 72; RESP 16
--- NOTE | 2023-12-16 14:41 | P.PAINPG ---
PQRS Measure Charge Sheet Comment: HISTORY OF PRESENT ILLNESS: A 52 yr old female presents today w severe and chronic neck pain secondary to occipital neuralgia and cervicogenic STEVENSON for evaluation s/p JAYDE C6-C7 #2. Pt states she experienced 0 % pain relief x 3 wks s/p procedure. Pt underwent a BL RFA C2-C4 on 07/04/23 and continues to feel 75% pain relief s/p procedure. Pt states pain level is provoked at 8 /10 in intensity, constant, localized in the mid cervical spine, predominantly axial, achy in character w occasional shooting pain towards the BL shoulders. Pain is provoked by hyperextension. Pain is alleviated by injections, physician guided home exercises and stretches 5 times weekly x 3 mo, medications, repositioning and rest. Cervical disability pain score of 27. Interventional procedures include BL RICH x1, BL RFA C2-C4 (Jun 2023), BL TPIs C2- T1 x1, JAYDE C7-T1 x1, JAYDE C6-7 #2 Medications include Comfort, Topamax, Cymbalta, Imitrex REVIEW OF ORGAN SYSTEMS: CONSTITUTIONAL: No fevers or chills. No recent weight loss. NEUROLOGICAL: + numbness and tingling along the distal extremities. No seizure disorders or headaches. MUSCULOSKELETAL: + pain PSYCHIATRIC: Denies current depression or suicidal thoughts. Physical Examinations : Constitutional : Cooperative , not in acute distress . Neurologic : Cranial nerve II to XII intact. No focal neurological deficits. Psychiatric : alert & oriented x 3. Matching mood & appropriate affect. Judgment & insight intact. Musculoskeletal : Cervical Spine Motor strength in the deltoid and biceps: Normal right side. Normal Left side Motor strength biceps and the wrist extensors: Normal right side . Normal left side Motor strength in the triceps muscle: Normal right side. Normal left side Deep tendon reflexes: Normal at the biceps. Normal at Brachioradialis. Normal at triceps Vertebral body tenderness to deep palpation over C6 Cervical facet loading test: positive bilaterally C2-C3, C3-C4 Taut bands w twitch response Spurling test: positive bilaterally C6- C7 L > R Neck distraction test: positive bilaterally Du sign: positive bilaterally Lumbar spine Motor strength lower extremities ,thigh and legs 5/5 Right side , 5/5 Left side Deep tendon reflexes : Normal Knee Jerk. Normal Ankle Jerk Vertebral body tenderness over Benitez Test positive Lumbar facet Loading Test: positive Right / positive Left Range of motion of the lumbar spine Flexion 30 degrees, extension 10 degrees Straight Leg Raise test: Left/ Right positive at degree Paige test: positive right / positive left. Severe tenderness over the Sacroiliac joint on the Right / Left sides Gaenslen test: positive bilaterally Seated flexion test: positive bilaterally. Sacral spine : Severe tenderness over the Sacroiliac joint: right side / left side Range of motion: Flexion of the lumbar spine <60 degrees Range of motion: Extension of the lumbar spine <20 degrees Gaenslen's Test positive Modesto's Test positive Paige test: positive right side / left side Thigh Thrust Test Sacral Thrust Test Imaging: MRI noncontrast of the cervical spine from 12/25/22 reviewed Assessment/ Plan : Cervicogenic STEVENSON and Occipital Neuralgia Recommendation of medication management. May need a series of injections, up until RFA, for optimal pain relief. Risks, benefits of procedure discussed and pt verbalized understanding. All questions answered. I have spent greater than 30 minutes on patient care today. Dr Delgado was available by phone for the evaluation of this patient. The time was used to review the medical records including relevant urine studies and Prescription history (MAPs), review of the available imaging, evaluation and examination of the patient, coordination of care with the medical staff and if applicable referring physicians, as well as creation of the medical record PQRS Narrative: Hx Alcohol Use (MH) Yes: OCCASIONAL Home Medications: Ambulatory Orders ALPRAZolam [Xanax] 0.5 mg PO DAILY PRN 01/07/23 DULoxetine HCL [Cymbalta] 60 mg PO DAILY 01/07/23 Furosemide [Lasix] 40 mg PO DAILY PRN 01/07/23 HYDROcodone/APAP 10-325MG [Comfort 10-325] 1 tab PO QID 01/07/23 SUMAtriptan succinate [Imitrex] 100 mg PO DIRECTED PRN 01/07/23 Zolpidem [Ambien] 10 mg PO HS PRN 01/07/23 captopriL [Captopril] 100 mg PO DAILY 01/07/23 Omeprazole 40 mg PO DAILY 01/21/23 Topiramate 100 mg PO DAILY 01/21/23 Atorvastatin [Lipitor] 20 mg PO DAILY 10/02/23 Controlled Substance Measures - Controlled Substance Measures Is patient prescribed a controlled substance at discharge?: No
== END ==
LOC: PNWHC3 09:53
PROVIDERS: ATTEND Specialist
DX: M54.81 Occipital neuralgia (principal); G44.86 Cervicogenic headache; Z91.018 Allergy to other foods; Z88.1 Allergy status to other antibiotic agents; Z88.0 Allergy status to penicillin
CPT/HCPCS: 99211

== ENCOUNTER 2024-01-24 09:41 | Day surgery (SDC) | payer OTHER ==
[2024-01-24 09:57] VITALS: TEMP 97
[2024-01-24] MEDS: LACTATED RINGERS 1,000 ML IV SCH (10:07)
[2024-01-24] MEDS: IV FLUID CONTINUATION 1,000 ML IV ONE ×2 (10:07→10:53)
[2024-01-24] MEDS ORDERED: MIDAZOLAM 2 MG/2 ML VIAL ONE (10:19)
[2024-01-24] MEDS ORDERED: ROPIVACAINE 5MG/ML 20ML VIAL ONE (10:19)
--- NOTE | 2024-01-24 10:58 | P.PCN ---
Description of Procedure: Procedure done. left C 2-3, C 3-4 facet joint (C 2,3,4 medial branch of dorsal ramus ) radiofrequency ablation under fluoroscopic guidance. Anesthesia. IV sedation with versed 2mg . Continuous pulse ox, EKG, blood pressure and verbal communication was maintained with the patient in OR. Blood loss. None. Indication. Patient has got the diagnoses of cervical spondylolysis, facet joint arthropathy with neck pain. Diagnostic medial branch block relieved significant pain. Discussed with the patient procedure, alternatives, co mplications including infection, bleeding, nerve damage, paralysis all of which could be permanent. Patient understands and all questions are answered. Procedure note. After getting consent patient in OR in prone position. Back of the neck was prepped with chlorhexidine and draped in sterile fashion. After injecting 5 mL of plain 1% lidocaine subcutaneously, a 20-gauge RFA needle was introduced under tunnel vision of the fluoroscope AP view at the waist of the articular pillar (lateral mass) at C4 vertebral level. In the lateral view of the fluoroscope it was confirmed that the tip of the needle stayed within the dorsal half of the articular pillar (lateral mass). C3-4 facet joint was targeted by blocking C3 and C4 medial branch, C2-3 facet joint was targeted by blocking C2 and C3 medial branch . After subcutaneous injection of lidocaine, 20-gauge RFA needle were introduced under tunnel vision of the fluoroscope AP view at the waist of the articular pillars (lateral mass) at C3 vertebral level. In the lateral view of the fluoroscope it was confirmed that the tip of the needle stayed within the dorsal half of the articular pillar (lateral mass). After subcutaneous injection of lidocaine, 20-gauge RFA needle were introduced under tunnel vision of the fluoroscope AP view at the waist of the articular pillars (lateral mass) at C2 vertebral level. In the lateral view of the fluoroscope it was confirmed that the tip of the needle stayed within the dorsal half of the articular pillar (lateral mass). . After positive sensory and negative motor stimulation,injection of 1 ml of 0.5% Ropivacaine, radiofrequency ablation was done at 80 C's for 90 seconds. Second lesion was done at the same settings after rotating the needls 180 degrees. After the procedure needle was taken out and bandage was applied. Disposition. Patient tolerated the procedure well. No complication. Discharged home in stable condition.
[2024-01-24 11:08] VITALS: BP 122/81; PULSE 64; RESP 16
--- NOTE | 2024-01-24 11:28 | FL ---
EXAMINATION TYPE: FL guided pain mgmt statistic Intraoperative/procedural fluoroscopic services were provided. Total fluoroscopy time is 37 seconds with a total of 2 submitted images to PACS. Please see the operative/procedural note for further details. DAP: 0.5745 mGym2
== END 2024-01-24 11:32 | disposition home or self-care (01) ==
LOC: ORPAIN 09:41
PROVIDERS: ATTEND Pain Medicine Interventional Pain Medicine
DX: M47.812 Spondylosis without myelopathy or radiculopathy, cervical region (principal); Z88.1 Allergy status to other antibiotic agents; Z88.0 Allergy status to penicillin; Z88.8 Allergy status to other drugs, medicaments and biological substances
CPT/HCPCS: 81025; 64633; 64634; J2250; J2795; 99152; 99153

== ENCOUNTER 2024-02-28 09:31 | Day surgery (SDC) | payer OTHER ==
[2024-02-28] MEDS ORDERED: LACTATED RINGERS 1,000 ML BAG ONE (10:02)
[2024-02-28] MEDS ORDERED: fentaNYL (PF) 50 MCG/ML 2 ML AMP ONE (11:00)
[2024-02-28] MEDS ORDERED: ROPIVACAINE 5MG/ML 20ML VIAL ONE (11:00)
[2024-02-28] MEDS ORDERED: methylPREDNISolone ACETATE 40 MG/ML 1 ML VIAL ONE (11:00)
[2024-02-28] MEDS ORDERED: MIDAZOLAM 2 MG/2 ML VIAL ONE (11:00)
--- NOTE | 2024-04-14 18:19 | FL ---
EXAMINATION TYPE: FL guided pain mgmt statistic DATE OF EXAM: 03/12/2024 2:38 PM COMPARISON: Pre Operative Images if available both CT/MRI or plain film CLINICAL INDICATION: Female, 53 years old with history of CERV RFA; TECHNIQUE: FL guided pain mgmt statistic, multiple fluoroscopic images provided for procedure. Total fluoroscopy time: 4 seconds Total submitted images to PACS: 6 DAP: 0.14048 mGym2 Gycm2 uGym2 cGycm2 or equivalent. FINDINGS: IMPRESSION: 1. No evidence for intraoperative complication. 2. Please see the operative/procedural note for further details. [facility], , 04/14/2024 6:17 PM
== END 2024-02-28 11:59 ==
LOC: ORPAIN 09:31
PROVIDERS: ATTEND Specialist
DX: M47.812 Spondylosis without myelopathy or radiculopathy, cervical region (principal); Z88.0 Allergy status to penicillin; Z88.1 Allergy status to other antibiotic agents; Z79.899 Other long term (current) drug therapy
CPT/HCPCS: 64633; 64634; 81025; 99152

== ENCOUNTER → 2024-03-19 | Outpatient (CLI) | payer OTHER ==
[2024-03-19 11:57] VITALS: BP 116/60; PULSE 65; RESP 15; TEMP 97.8
--- NOTE | 2024-03-19 14:13 | P.PAINPG ---
PQRS Measure Charge Sheet Comment: HISTORY OF PRESENT ILLNESS: A 52 yr old female presents today w severe and chronic neck pain secondary to occipital neuralgia and cervicogenic STEVENSON for evaluation s/p BL RFA C2-C3/ C3-C4. Pt states she experienced 100 % pain relief s/p procedure. Pt states pain level is provoked at 3 /10 in intensity, constant, localized in the mid cervical spine, predominantly axial, achy in character w occasional shooting pain towards the BL shoulders. Pain is provoked by hyperextension. Pain is alleviated by injections, physician guided home exercises and stretches 5 times weekly x 3 mo, medications, repositioning and rest. Interventional procedures include BL RICH x1, BL RFA C2-C4 (Jun 2023, Feb 2024), BL TPIs C2- T1 x1, JAYDE C7-T1 x1, JAYDE C6-7 #2 Medications include Douglas, Topamax, Cymbalta, Imitrex REVIEW OF ORGAN SYSTEMS: CONSTITUTIONAL: No fevers or chills. No recent weight loss. NEUROLOGICAL: + numbness and tingling along the distal extremities. No seizure disorders or headaches. MUSCULOSKELETAL: + pain PSYCHIATRIC: Denies current depression or suicidal thoughts. Physical Examinations : Constitutional : Cooperative , not in acute distress . Neurologic : Cranial nerve II to XII intact. No focal neurological deficits. Psychiatric : alert & oriented x 3. Matching mood & appropriate affect. Judgment & insight intact. Musculoskeletal : Cervical Spine Motor strength in the deltoid and biceps: Normal right side. Normal Left side Motor strength biceps and the wrist extensors: Normal right side . Normal left side Motor strength in the triceps muscle: Normal right side. Normal left side Deep tendon reflexes: Normal at the biceps. Normal at Brachioradialis. Normal at triceps Vertebral body tenderness to deep palpation over C6 Cervical facet loading test: positive bilaterally C2-C3, C3-C4 Taut bands w twitch response Spurling test: positive bilaterally C6- C7 L > R Neck distraction test: positive bilaterally Du sign: positive bilaterally Lumbar spine Motor strength lower extremities ,thigh and legs 5/5 Right side , 5/5 Left side Deep tendon reflexes : Normal Knee Jerk. Normal Ankle Jerk Vertebral body tenderness over Benitez Test positive Lumbar facet Loading Test: positive Right / positive Left Range of motion of the lumbar spine Flexion 30 degrees, extension 10 degrees Straight Leg Raise test: Left/ Right positive at degree Paige test: positive right / positive left. Severe tenderness over the Sacroiliac joint on the Right / Left sides Gaenslen test: positive bilaterally Seated flexion test: positive bilaterally. Sacral spine : Severe tenderness over the Sacroiliac joint: right side / left side Range of motion: Flexion of the lumbar spine <60 degrees Range of motion: Extension of the lumbar spine <20 degrees Gaenslen's Test positive Modesto's Test positive Paige test: positive right side / left side Thigh Thrust Test Sacral Thrust Test Imaging: MRI noncontrast of the cervical spine from 12/25/22 reviewed Assessment/ Plan : Cervicogenic STEVENSON and Occipital Neuralgia Will manage residual pain and may RTC on an as needed basis. All questions answered. I have spent greater than 30 minutes on patient care today. Dr Delgado was available by phone for the evaluation of this patient. The time was used to review the medical records including relevant urine studies and Prescription history (MAPs), review of the available imaging, evaluation and examination of the patient, coordination of care with the medical staff and if applicable referring physicians, as well as creation of the medical record PQRS Narrative: Hx Alcohol Use (MH) Yes: OCCASIONAL Home Medications: Ambulatory Orders ALPRAZolam [Xanax] 0.5 mg PO DAILY PRN 01/07/23 DULoxetine HCL [Cymbalta] 60 mg PO DAILY 01/07/23 Furosemide [Lasix] 40 mg PO DAILY PRN 01/07/23 HYDROcodone/APAP 10-325MG [Douglas 10-325] 1 tab PO QID 01/07/23 SUMAtriptan succinate [Imitrex] 50 mg PO DIRECTED PRN 01/07/23 Zolpidem [Ambien] 10 mg PO HS PRN 01/07/23 captopriL [Captopril] 100 mg PO DAILY 01/07/23 Omeprazole 40 mg PO DAILY 01/21/23 Topiramate 100 mg PO DAILY 01/21/23 Atorvastatin [Lipitor] 20 mg PO DAILY 10/02/23 Controlled Substance Measures - Controlled Substance Measures Is patient prescribed a controlled substance at discharge?: No
== END ==
LOC: PNWHC3 10:21
PROVIDERS: ATTEND Specialist
DX: M47.812 Spondylosis without myelopathy or radiculopathy, cervical region
CPT/HCPCS: 99211